=== PATIENT | female | born 1985 | race African-American/Black ===

== ENCOUNTER 2024-03-28 13:58 | Emergency (ER) | payer MEDICAID, SELFPAY ==
[2024-03-28] MEDS ORDERED: Ketorolac Tromethamine 30 MG (1 mL) VIAL ONE (15:48)
== END 2024-03-28 18:15 | disposition home or self-care (01) ==
LOC: ERS 13:58
DX: M79.605 Pain in left leg (principal); I10 Essential (primary) hypertension; E11.9 Type 2 diabetes mellitus without complications
CPT/HCPCS: 96372; J1885